=== PATIENT | male | born 1990 | race Caucasian/White ===

== ENCOUNTER 2016-04-09 23:08 | Emergency (ER) | payer SELFPAY | END 2016-04-10 00:15 | disposition left against medical advice (07) | LOC: EDBD 23:08 → ER 23:08 | DX: Z53.21 Procedure and treatment not carried out due to patient leaving prior to being seen by health care provider (principal) | CPT/HCPCS: 36415; 71010; 80053; 82550; 82553; 83735; 84484; 85025; 85610; 85730; 93005 ==